=== PATIENT | female | born 1990 | race Caucasian/White ===

== ENCOUNTER → 2016-11-23 | Outpatient (CLI) | payer SELFPAY ==
[~2016-11-23] MED LIST: CIPRO250 M1 PO; MIRENA52 MG IU; NORCO 325 MG-51 TAB PO
[2016-11-23 12:55] VITALS: BP 128/68
[2016-11-23 14:04] VITALS: BP 118/69
== END ==
LOC: AMSURD 12:39
DX: L25.9 Unspecified contact dermatitis, unspecified cause (principal)
CPT/HCPCS: J1200; J2930; J7030